=== PATIENT | male | born 1990 | race Caucasian/White ===

== ENCOUNTER 2018-01-19 14:55 | Emergency (ER) | payer OTHER ==
[2018-01-19] MEDS ORDERED: LIDOCAINE 1% MDV 20ML VIAL As Ordered (17:50)
[2018-01-19] MEDS: AZITHROMYCIN 250 MG TAB PO (17:55)
[2018-01-19] MEDS: cefTRIAXone SOD 250 MG VIAL (J0696) IM (17:58)
[2018-01-19 18:12] LABS: CHLAMYDIA DNA AMPLIFICATION NEGATIVE (NEGATIVE); GC DNA AMPLIFICATION NEGATIVE (NEGATIVE)
== END 2018-01-19 18:11 | disposition home or self-care (01) ==
LOC: M ED 14:55
DX: Z20.2 Contact with and (suspected) exposure to infections with a predominantly sexual mode of transmission (principal)
CPT/HCPCS: J0696

== ENCOUNTER 2019-03-31 19:05 | Emergency (ER) | payer OTHER ==
[~2019-03-31] VITALS: Ht 175.3 cm; Wt 81.8 kg
[2019-03-31 19:05] VITALS: BP 146/75
== END 2019-03-31 19:34 | disposition left against medical advice (07) ==
LOC: M ED 19:05
DX: R11.2 Nausea with vomiting, unspecified (principal); R19.7 Diarrhea, unspecified; Z53.21 Procedure and treatment not carried out due to patient leaving prior to being seen by health care provider